=== PATIENT | male | born 1980 | race Caucasian/White ===

== ENCOUNTER 2021-03-23 13:48 | Inpatient (IN) ==
[2021-03-23 14:52] LABS: Basophils # 0.1 K/mcL (0.0-0.2); Eosinophils # 0.2 K/mcL (0.0-0.6); Eosinophils % 2.9 %; Hematocrit 44.1 % (37.5-50.1); Hemoglobin 14.9 g/dL (12.9-16.9); Immature Granulocytes % 0.2 % (0-4); Lymphocytes # 1.7 K/mcL (0.6-4.6); Lymphocytes % 28.5 %; Mean Corpuscular HGB Conc 33.8 g/dL (31.6-35.5); Mean Corpuscular Hemoglobin 30.2 pg (28.0-33.3); Mean Corpuscular Volume 89.5 fL (83.0-100.0); Mean Platelet Volume 8.5 fL (9.4-12.4); Monocytes # 0.7 K/mcL (0.0-1.3); Monocytes % 12.1 %; Neutrophils # 3.2 K/mcL (1.6-8.9); Platelet Count 310 K/mcL (140-400); Red Blood Count 4.93 M/mcL (4.19-5.50); Red Cell Distribution Width 13.2 % (11.5-14.5); Segmented Neutrophils % 55.3 %; White Blood Count 5.9 K/mcL (4.3-11.1)
[2021-03-23 15:30] LABS: Acetaminophen < 10 mcg/mL (10-20); BUN/Creatinine Ratio 11 (6-26); Blood Urea Nitrogen 12 mg/dL (6-20); Calcium 10.4 mg/dL (8.6-10.3); Carbon Dioxide 30 mEq/L (23-29); Chloride 103 mEq/L (98-107); Chol/HDL Ratio 2.9 (0-4.9); Cholesterol 140 mg/dL (< 200); Ethanol < 10 mg/dL (Less than 10); Glucose 84 mg/dL (70-105); HDL Cholesterol 49 mg/dL (40-59); LDL Cholesterol,Calculated 74 mg/dL (< 100); Osmolality,Calculated 287 (280-300); Potassium 3.6 mEq/L (3.5-5.1); Salicylate < 2.5 mg/dL (15.0-30.0); Sodium 139 mEq/L (136-145); Triglycerides 83 mg/dL (< 150); eGFR For African Americans > 60 (> 60); eGFR For Non-African Americans > 60 (> 60)
[2021-03-23 16:20] LABS: Bilirubin,Urine Negative (Negative); Blood,Urine Negative (Negative); Clarity,Urine Turbid (Clear); Color,Urine Yellow (Yellow); Glucose,Urine (UA) Normal (Normal); Hyaline Casts,Urine Few per lpf (None Seen); Ketones,Urine 10 mg/dL (Negative); Leukocyte Esterase,Urine Large (Negative); Mucus,Urine Many per lpf (None-Few); Nitrite,Urine Negative (Negative); Protein,Urine 70 mg/dL (Neg-Trace); RBC,Urine 0-3 per hpf (0-3); Specific Gravity,Urine > 1.030 (1.010-1.025); Squamous Epithelial Cell,Urine Few per hpf (None-Few); Urobilinogen,Urine Normal (Normal); WBC,Urine 30-50 per hpf (0-3)
[2021-03-23 16:45] LABS: Amphetamine Screen,Urine Positive ng/mL (Cutoff=1000); Barbiturate Screen,Urine Negative ng/mL (Cutoff=200); Benzodiazepines Screen,Urine Negative ng/mL (Cutoff=200); Cannabinoid Screen,Urine Positive ng/mL (Cutoff = 50); Cocaine Screen,Urine Negative ng/mL (Cutoff= 300); Opiate Screen,Urine Negative ng/mL (Cutoff=300); Phencyclidine Screen,Urine Negative ng/mL (Cutoff=25)
[2021-03-23 17:23] LABS: Estimated Average Glucose 91 mg/dl; Hemoglobin A1C 4.8 %
[2021-03-23 20:07] LABS: Influenza A PCR Negative (Negative); Influenza B PCR Negative (Negative); Resp. Syncytial Virus PCR Negative (Negative)
[2021-03-23 20:43] LABS: SARS-CoV-2 by PCR (In House) Negative (Negative)
[2021-03-23] MEDS ORDERED: Acetaminophen 325 MG TABLET PO PRN (21:00)
[2021-03-23] MEDS ORDERED: Haloperidol Lactate 5 MG/ML VIAL IM PRN (21:00)
[2021-03-23] MEDS ORDERED: *HR* LORazepam 2 MG/ML VIAL IM PRN (21:00)
[2021-03-23] MEDS ORDERED: *HR* LORazepam 1 MG TABLET PO PRN (21:00)
[2021-03-23] MEDS ORDERED: haloperidoL 5 MG TABLET PO PRN (21:00)
[2021-03-23] MEDS ORDERED: QUEtiapine Fumarate 25 MG TABLET PO PRN (21:17)
[2021-03-23] MEDS: OLANZapine 5 MG TAB.RAPDIS PO SCH (21:36)
[2021-03-23] MEDS: hydrOXYzine pamoate 25 MG CAPSULE PO PRN (21:37)
[2021-03-24] MEDS: OLANZapine 5 MG TAB.RAPDIS PO SCH ×2 (10:03→20:57)
[2021-03-24] MEDS: hydrOXYzine pamoate 25 MG CAPSULE PO PRN (20:57)
[2021-03-24 21:03] VITALS: TEMP 97.8
[2021-03-25] MEDS: OLANZapine 5 MG TAB.RAPDIS PO SCH (09:20)
[2021-03-25 09:24] VITALS: BP 117/88; PULSE 130; O2SAT 100
[2021-03-25] MEDS ORDERED: Moderna Covid-19 Vaccine 100MCG/0.5mL IM ONE (11:36)
== END 2021-03-25 13:40 | disposition home or self-care (01) | DRG 751 ==
LOC: EMEROOARM 13:48 → 1ANU 20:58
PROVIDERS: ADMIT Psychiatry & Neurology Psychiatry; ATTEND Psychiatry & Neurology Psychiatry